=== PATIENT | female | born 1955 | race Caucasian/White ===

== ENCOUNTER → 2017-05-16 | Day surgery (SDC) | payer OTHER ==
[~2017-05-16] VITALS: Ht 162.6 cm; Wt 69.0 kg
[~2017-05-16] MED LIST: Atropine 0.4 mg/mL Inj IVPUSH PRN; Bupivacaine-MPF 0.5% 30 mL Inj INFILTRATE ONE; CeFAZolin Inj 2 GM in IV Premix 1 EACH IV ONE; Dexamethasone 4 mg/mL Inj IVPUSH PRN; EPHEDrine Sulfate 50 mg/mL Inj IVPUSH PRN; HYDR-3090 PO; HYDROcodone-APAP 5-325 mg Tablet PO ONE; HYDROmorphone 1 mg/mL Inj IVPUSH PRN; HepLOK Flush 10 Unit/mL 10 mL Inj IVFLUSH ONE; IBUP200C PO; Labetalol 5 mg/mL 20 mL Inj IV PRN; Lactated Ringer's 1,000 ML IV SCH; Lactated Ringer's 500 ML IV PRN; ONDA8TAB10 PO; Ondansetron 2 mg/mL 2 mL Inj IVPUSH PRN; Phenylephrine 10,000 mCg/mL Inj IVPUSH PRN; Propofol 10,000 mCg/mL 20 mL Inj ONE; Remifentanil 1 mg/3 mL Inj ONE; [UNRECOGNIZED DRUG - CODE] PO; fentaNYL-PF 50 mCg/mL 2 mL Inj IVPUSH PRN; fentaNYL-PF 50 mCg/mL 2 mL Inj ONE; hydrALAZINE 20 mg/mL Inj IVPUSH PRN
--- NOTE | 2017-05-16 06:58 | PCM.HPANE ---
Patient Data Surgeon Admitting Provider: Attending Provider:Maribell Guardado MD Primary Care Physician:Tonio Cabello DO Other Provider:Cali Leigh Anesthesia Reason for Visit Breast Cancer Ht/WT & BMI Height (Feet): 5 Height (Inches): 4 Weight (Kilograms): 69.3 Body Mass Index 26.00 Allergies Coded Allergies: No Known Drug Allergies (Verified Allergy, Unknown, 05/11/17) Past Anesthesia History Anesthesia History: Denies:: Abnormal Airway, Anesthesia Reactions, Difficult Intubation, Fam Anesthesia Reaction, Fam Malignant Hypertherm, Malignant Hyperthermia Diabetes History Hx Diabetes?: No MRSA MRSA: No Medications Reported Medications Ondansetron ODT 8 Mg Tab.rapdis8 Mg PO DAILY #60 05/16/17 Morphine Sulfate (Arymo ER)15 Mg Tab.po.er15 Mg PO HS 05/11/17 Ibuprofen 200 Mg Giidavo512 Mg PO DAILY PRN For Pain Ref 0 05/11/17 Hydrocodone-Acetaminophen 5-300 mg 1 Each Tablet1 Tablet PO QID PRN For Pain Ref 0 05/11/17 Discontinued Reported Medications Hydrocodone-Acetaminophen 5-325 mg 1 Each Tablet1-2 Tablet PO Q6H PRN For Pain Ref 0 04/19/17 [Immodium A-D] No Conflict Check2-4 Mg PO PRN PRN For Diarrhea or Loose Stool 12/10/14 History History of ENT Problems?: Yes HEENT History: Denies:: Abnormal Airway Difficult Intubation Dysphagia Hearing Problem Sinus Problem (allergy related) TMJ Denture Type: None Full- Upper Full- Lower Teeth Condition: Missing Teeth Hx of Heart Problems?: No Cardiovascular History: Denies:: Congestive Heart Failure Hypertension Hx of Respiratory Problem?: No Respiratory History: Positive for:: Pneumonia (Last 1995) Denies:: Tuberculosis Use of C-PAP Machine Hx Neurologic Problems?: No Hx of GI Problems?: No Hx of Problems?: No HX of Peritoneal Dialysis: No Female Hx: Positive for:: Problems with Breasts? (S/P RT BREAST BX RT BREAST CA=CURRENT PROBLEM) Denies:: Currently Pelvic Inflammatory (LEUKORRHEA) Skin History: Denies:: History Skin Disorders? Pressure Ulcers Hx Musculoskeletal Problems?: Yes Musculoskeletal History: Positive for:: Back Injury (herniated disc treated with steroid inj.) Denies:: Degenerative Joint Joint Replacement Hx of Psycho/Social Problems?: No Psycho Social History: Denies:: Hx Depression Hx Surgeries?: Yes (RT BREAST BX,TONSILLECTOMY,EXC GANGLION CYST LT WRIST) Hx Any Other Health Problems?: Yes Other History: Positive for:: Cancer (RT BREAST) Hospitalization (port plaacement and lump eectomy 12/2014) Denies:: Endocrine Disease Thyroid Disease History Blood Transfusions: Positive for:: Accept Blood Products? Denies:: Blood Transfusions Hx Diabetes: No Hx Alcohol Use: NoHx Substance Use: Yes (smoke and use lotion) Smoking Status: Former Smoker Have You Smoked inLast 12 mo: No Stop/Bang S-Snoring: Do You Snore Loudly: No T-Tired: feel tired, fatigued: No O-Obsered: Observed not breath: No P-Blood Pressure: treated: No B- Body Mass Index > 35 kg/m2: No A- Age over 50: Yes N- Neck Large Circumference: No G- Gender Male: No SALVADOR Total Score: 1 Risk Assessment Category Category 1A: Patient has history of documented sleep apnea, and HAS NOT received any narcotic, sedative or anesthesia administration during this stay. Category 1B: Patient has history of documented sleep apnea, and HAS received any narcotic , sedative or anesthesia administration during this stay Category 2: Patient has SUSPECTED Obstructive Sleep Apnea, and HAS received any narcotic , sedative or anesthesia administration during this stay. Category 3: Patient has SUSPECTED Obstructive Sleep Apnea and HAS NOT received narcotic, sedative or anesthesia administration during this stay. Category 4: Outpatient in Procedural Areas with known sleep apnea or who screen positive for High Risk via the STOP/BANG questionnaire. Exam Exam General Appearance: Alert, Oriented X3, Cooperative, Moderate Distress HEENT/AIRWAY: MP 1 Lungs: Clear to Auscultation Heart: Exam Unremarkable Plan Impression Patient chart reviewed, patient interviewed and anesthestic plan with risks, benefits, and alternatives discussed, and informed consent obtained. ASA Physical Status: ASA2 Mod Systemic Disease Anesthetic Plan: MAC Bene/Risks/Altern/Consents: Yes HP Complete Prior to Induction: Yes Andrez Iqbal MD May 16, 2017 06:58
[2017-05-16] MEDS: Lactated Ringer's 1,000 ML IV SCH ×2 (08:31→10:13)
[2017-05-16 08:44] VITALS: BP 139/75; PULSE 58; RESP 16; O2SAT 99
[2017-05-16 10:52] VITALS: BP 153/92; PULSE 75; RESP 15; O2SAT 99
--- NOTE | 2017-05-16 10:56 | PCM.SURGPO ---
Immediate Operative Note Date of Surgery: May 16, 2017 Pre Operative Diagnosis Metastatic Breast Cancer Post Operative Diagnosis Metastatic Breast Cancer Procedure Tunneled Left subclavian central venous catheter with subcutaneous port Surgeon and Mechanical Engineering Manager Surgeon: Maribell Guardado MD Assistants: Sheila yoon, Findings Catheter in good position, working well Complications There were no periprocedural complications identified. Surgical Specimen Removed: No Specimen sent to Pathology: No Anesthetic Administered: MAC Grafts, Implants: Implants-See Implant Record Output, Estimated Blood Loss: 2 Blood Admin during surgery: No Maribell Guardado MD May 16, 2017 10:56
[2017-05-16 11:04] VITALS: BP 135/69; PULSE 58; RESP 16; O2SAT 99
[2017-05-16 11:15] VITALS: BP 140/72; PULSE 60; RESP 16; O2SAT 98
--- NOTE | 2017-05-16 11:33 | PCM.ANEP1 ---
Post Anesthesia PACU Phase 1 Assessment Vital Signs Vital Signs Date Time Temp Pulse Resp B/P Pulse Ox O2 Delivery O2 Flow Rate FiO2 05/16/17 11:04 58 16 135/69 99 Room Air 05/16/17 10:52 36.3 75 15 153/92 99 Room Air 05/16/17 08:44 36.2 58 16 139/75 99 Room Air Anesthetic Administered: MAC Level of Alertness: Awake, talking KHAN's with Equal Strength: Yes Pain: Yes Nausea or Vomiting: No CV Function & Hydration Stable: Yes Airway Device: Oxygen Delivery: Room Air Lungs: Clear to Auscultation PACU Phase 2 Assessment Complications: No Follow up Care: No Patient Instructions Provided: N/A Andrez Iqbal MD May 16, 2017 11:33
--- NOTE | 2017-05-16 13:57 | DRSVH ---
PROCEDURE: X-RAY CHEST ONE VIEW, PORTABLE ([id number]) INDICATIONS: S/P PORT PLACEMENT TECHNIQUE: One view of the chest was acquired. COMPARISON: [facility], , CHEST 1VW (PORTABLE), 12/11/2014, 13:35. FINDINGS: Surgical changes and devices: Left subclavian chest port present, tip projected over the cavoatrial junction. Right breast surgical clips redemonstrated. Lungs and pleura: No pleural effusions or pneumothorax. Lungs are clear. Mediastinum: Mediastinal contours appear normal. Heart size is normal. Bones and chest wall: No suspicious bony lesions. Overlying soft tissues appear unremarkable. IMPRESSION: 1. Placement of left subclavian chest port without immediate complication. Dictated by: Jasper ROSALES Interpreted: Tammie Lamar MD on 05/16/2017 at 13:19 Transcribed by: LINDSAY on 05/16/2017 at 16:57 Approved by: Tammie Lamar M.D. on 05/16/2017 at 17:11
--- NOTE | 2017-05-16 14:44 | OP ---
[address] [address] OPERATIVE REPORT PATIENT: JUANA TERRAZAS : 1955 MR#: [id number] ADMIT: 05/16/2017 JOB ID: [id number] DATE OF SURGERY: 05/16/2017 PREOPERATIVE DIAGNOSIS(ES): Recurrent metastatic breast cancer. POSTOPERATIVE DIAGNOSIS(ES): Recurrent metastatic breast cancer. PROCEDURE PERFORMED: Tunneled left subclavian central venous catheter with subcutaneous port and intraoperative fluoroscopy with interpretation. SURGEON: Maribell Guardado M.D. CLINICAL ENGINEERING MANAGER: . COMPLICATIONS: None. CONDITION OF THE PATIENT: Stable. INDICATIONS: The patient is a 61-year-old lady who was diagnosed with T2, N0 poorly differentiated invasive ductal carcinoma of the right breast in 2014 and underwent right partial mastectomy and sentinel lymph node biopsy and left subclavian Port-A-Cath placement by Dr. Armas in December of 2014. She finished chemotherapy with paclitaxel and carboplatin and radiation. She had her port removed in July. She did not tolerate hormone therapy. She then developed discomfort and swelling in the right axilla prompting finally a diagnostic mammogram followed by ultrasound-guided right axillary lymph node biopsy. She was ultimately diagnosed with a recurrent metastatic breast cancer with bulky right supraclavicular lymphadenopathy and right axillary lymphadenopathy. She was started on chemotherapy with Doxil and was sent to me for port placement. After discussing the risks, benefits, and alternatives, she is here today for that. PROCEDURE DETAILS: She was placed in the supine position. Underwent sedation and the neck and chest were prepped and draped in the usual sterile fashion. Surgical time-out was undertaken using safety checklist, and all were in agreement. We then placed her in a Trendelenburg position, and I entered the left subclavian vein using Seldinger technique, advanced the wire under fluoroscopy measuring the required length of the catheter using the length of the wire. I then created a pocket over her old port incision once and tunneled the catheter from the skin puncture site down to the pocket. I then used an introducer dilator to replace the wire with the introducer sheath and advanced the catheter through the introducer sheath. After again checking final placement of the catheter position, I cut the catheter to the appropriate length and attached to the port and aspirated and flushed it and it was working well. After again confirming good catheter course fluoroscopically with no kinks and tip to be in appropriate position, I closed the skin in layers of 4-0 Monocryl. Steri-Strips and a sterile dressing were applied and the patient was recovered from anesthesia to recover from sedation. Taken to Day Surgery in stable condition.
== END | disposition home or self-care (01) ==
LOC: SAS 08:29
PROVIDERS: ATTEND Student in an Organized Health Care Education/Training Program
DX: C50.911 Malignant neoplasm of unspecified site of right female breast (principal); Z17.0 Estrogen receptor positive status [ER+]; Z92.21 Personal history of antineoplastic chemotherapy; Z92.3 Personal history of irradiation; Z87.891 Personal history of nicotine dependence
CPT/HCPCS: 36561; 71010; 77001; C1788; C1892; C1894; J0690; J1642; J2250; J2704; J3010; J7120